=== PATIENT | female | born 1990 | race Caucasian/White ===

== ENCOUNTER → 2019-08-24 09:59 | Outpatient (CLI) | payer MEDICAID, SELFPAY ==
[2019-08-24 12:40] LABS: Absolute Lymphocyte Count 2.06 X10^3/uL (0.83-4.51); Absolute Neutrophil Count 5.4 X10^3/uL (2.0-7.7); Basophil# 0.05 X10^3/uL; Basophil% 0.6 % (0-1); Eosinophil# 0.44 X10^3/uL; Eosinophils% 5.3 % (0-5); Hematocrit 44.5 % (37-47); Hemoglobin 14.7 g/dL (12.0-15.0); Lymphocyte # 2.06 X10^3/ul (4.0); Lymphocyte % 24.6 % (19-41); Mean Corpuscular Hgb 28.4 pg (27.0-32.0); Mean Corpuscular Volume 86.1 fL (81-99); Mean Platelet Vol. 10.2 fl (6.2-12.0); Monocyte# 0.44 X10^3/uL; Monocyte% 5.3 % (0-10); NRBC Flagged by Analyzer 0 % (0-5); Neutrophil # 5.36 X10^3/uL (2.7-7.7); Platelet Count 278 K/mm3 (150-450); RBC Distribution Width CV 13.1 % (11.6-14.6); RBC Distribution Width SD 40.8 fl (35.1-43.9); Red Blood Count 5.17 M/mm3 (4.2-5.4); White Blood Count 8.4 K/mm3 (4.4-11.0)
[2019-08-24 12:52] LABS: AST(SGOT) 15 U/L (15-37); Alanine Aminotransfer ALT/SGPT 27 U/L (13-56); Albumin, Serum 3.2 g/dL (3.2-5.0); Alkaline Phosphatase 58 U/L (45-117); Anion Gap 5 (5-15); BUN 8 mg/dL (7-18); BUN/Creat Ratio 12.2 RATIO (10-20); Calcium,Total 8.5 mg/dL (8.5-10.1); Chloride 107 mmol/L (98-107); Cholesterol 161 mg/dL (200); Creatinine, Serum 0.65 mg/dL (0.55-1.02); EST Glomerular Filtration Rate 114 mL/min (>60); Est Glom Filt Rate - Afr Amer 138 mL/min (>60); Globulin 3.2 g/dL (2.2-4.2); Glucose 82 mg/dL (74-106); High Density Lipoprotein 44 mg/dL; Protein, Total 6.4 g/dL (6.4-8.2); Sodium Level 139 mmol/L (136-145); T4 Free Direct 1.04 ng/dL (0.76-1.46); Thyroid Stim Hormone (TSH) 2.95 uIU/mL (0.358-3.74); Triglycerides 107 mg/dL; Very Low Density Lipoprotein 21 mg/dL (5-40)
== END ==
PROVIDERS: PCP Internal Medicine; Referring Provider Internal Medicine; Visit Provider Internal Medicine
DX: E03.9 Hypothyroidism, unspecified (principal); J45.909 Unspecified asthma, uncomplicated
CPT/HCPCS: 36415; 80053; 80061; 84439; 84443; 85025

== ENCOUNTER 2019-08-30 17:13 | Emergency (ER) | payer MEDICAID, SELFPAY ==
[2019-08-17 13:52] VITALS: BMI 32.1
[2019-08-30 17:13] VITALS: BP 119/75; PULSE 87; RESP 19; TEMP 36.8; O2SAT 97; BMI 33.7
--- NOTE | 2019-08-30 17:14 | NURSING ---
NO OLD EKGS
--- NOTE | 2019-08-30 17:54 | EKG12_ITS ---
Test Reason : CP Blood Pressure : / mmHG Vent. Rate : 087 BPM Atrial Rate : 087 BPM P-R Int : 150 ms QRS Dur : 098 ms QT Int : 372 ms P-R-T Axes : 070 081 047 degrees QTc Int : 447 ms Normal sinus rhythm Normal ECG Confirmed by KVNG ZAMORA ([id number]), business editor SOHEILA BOLAÑOS ([id number]) on 09/01/2019 1:57:39 PM Referred By: CUCA Confirmed By:KVNG ZAMORA
[2019-08-30 18:32] LABS: Absolute Lymphocyte Count 3.04 X10^3/uL (0.83-4.51); Absolute Neutrophil Count 10.2 X10^3/uL (2.0-7.7); Basophil% 0.7 % (0-1); Eosinophils% 2.7 % (0-5); Hematocrit 52.3 % (37-47); Hemoglobin 17.1 g/dL (12.0-15.0); Lymphocyte # 3.04 X10^3/ul (4.0); Lymphocyte % 20.7 % (19-41); Mean Corp Hgb Conc 32.7 g/dL (32-36); Mean Corpuscular Hgb 28.2 pg (27.0-32.0); Mean Corpuscular Volume 86.2 fL (81-99); Mean Platelet Vol. 9.9 fl (6.2-12.0); Monocyte# 0.82 X10^3/uL; Monocyte% 5.6 % (0-10); NRBC Flagged by Analyzer 0 % (0-5); Neutrophil # 10.22 X10^3/uL (2.7-7.7); Neutrophil % 69.8 % (47-70); Platelet Count 329 K/mm3 (150-450); RBC Distribution Width SD 40.2 fl (35.1-43.9); Red Blood Count 6.07 M/mm3 (4.2-5.4); White Blood Count 14.7 K/mm3 (4.4-11.0)
[2019-08-30 18:46] VITALS: BP 111/80; BP 97/71; PULSE 102; PULSE 76
[2019-08-30 18:51] LABS: Anion Gap 5 (5-15); BUN 7 mg/dL (7-18); BUN/Creat Ratio 8.8 RATIO (10-20); Calcium,Total 8.4 mg/dL (8.5-10.1); Chloride 109 mmol/L (98-107); Creatinine, Serum 0.79 mg/dL (0.55-1.02); EST Glomerular Filtration Rate 91 mL/min (>60); Est Glom Filt Rate - Afr Amer 110 mL/min (>60); Glucose 118 mg/dL (74-106); Potassium 3.6 mmol/L (3.5-5.1); Sodium Level 141 mmol/L (136-145)
[2019-08-30 19:24] LABS: Internal QC Validated? YES +Cl - CLEAR BKGD; Pregnancy, Serum, hCG Quali. NEGATIVE Negative
--- NOTE | 2019-08-30 20:01 | ED.DCSUM_ITS ---
- ER Visit Summary Date of Service: 08/30/19 Chief Complaint: [Chest pain and near syncope] History of Present Illness: The patient is a 28 F [with symptoms that started around 2 PM today. Patient states that she was donating plasma and she felt presyncopal several times while there. This is happened in the past when she is donated plasma. She then subsequently developed a sharp intermittent stabbing pain in her chest that would come and go and last a few seconds. Patient also is had some intermittent chest heaviness. She denies recent travel or surgery. Her last menstrual period was August 17. Patient has history of asthma.] Physical Examination: [HEENT-PERRLA, EOMI. Cranial nerves II through XII grossly intact. TMs clear. Mucous membranes moist. No adenopathy. Cardiovascular-regular rate and rhythm without murmur or ectopy Lungs-clear to auscultation, chest wall stable without crepitus or subcu emphysema Abdomen-normoactive bowel sounds, soft, nontender, no rebound or rigidity, no peritoneal signs. Extremities-intact ?4, normal range of motion, normal pulses, atraumatic] Test Results: [EKG obtained arrival shows sinus rhythm with a ventricular rate of 87 bpm with no acute ST segment changes. CBC with differential showed a wh ite count 14.7, hemoglobin 17, hematocrit 52, placed 329. Chemistries unremarkable. Troponin was less than 0.015. hCG was negative.] Static vital signs were negative. Emergency Department Course and Treatment: [Patient was observed in the emergency department. Patient felt markedly improved.] Treatment Plan: [I suspect patient likely had vasovagal type presyncope. I advised to push fluids and rest. Patient to follow-up with her primary care physician in 3 to 5 days.] Disposition: [Discharged home in stable condition] Impression: [Chest pain-etiology uncertain Vasovagal presyncope] This note was generated with [employer] dictation software. It may contain incorrect words, spelling, and punctuation that were not noted in review of the chart prior to signing ED Disposition - Plan for ED Patient: Referrals: Rubén Crawford MD [Primary Care Provider] -
--- NOTE | 2019-08-30 20:04 | ED.DEP ---
ED Disposition - Plan for ED Patient: Instructions: CHEST PAIN, Uncertain Cause, NEAR SYNCOPE, Vasovagal Referrals: Rubén Crawford MD [Primary Care Provider] - 3-5 Days
[2019-08-30 20:11] VITALS: BP 100/64; PULSE 82; RESP 16; O2SAT 96
== END 2019-08-30 20:12 | disposition home or self-care (01) ==
LOC: ED 18:16
PROVIDERS: Emergency Provider Emergency Medicine; PCP Internal Medicine
DX: R07.9 Chest pain, unspecified (principal); R55 Syncope and collapse; J45.909 Unspecified asthma, uncomplicated
CPT/HCPCS: 80048; 84484; 84703; 85025; 93005; 99285; A4216

== ENCOUNTER → 2019-09-07 08:52 | Outpatient (CLI) | payer MEDICAID, SELFPAY ==
[2019-09-07 08:35] VITALS: BMI 33.3
[2019-09-07 12:55] LABS: Absolute Lymphocyte Count 2.14 X10^3/uL (0.83-4.51); Absolute Neutrophil Count 5.2 X10^3/uL (2.0-7.7); Basophil# 0.07 X10^3/uL; Basophil% 0.8 % (0-1); Eosinophil# 0.72 X10^3/uL; Eosinophils% 8.3 % (0-5); Hematocrit 46.3 % (37-47); Lymphocyte # 2.14 X10^3/ul (4.0); Lymphocyte % 24.7 % (19-41); Mean Corp Hgb Conc 32.4 g/dL (32-36); Mean Corpuscular Hgb 28.4 pg (27.0-32.0); Mean Corpuscular Volume 87.5 fL (81-99); Mean Platelet Vol. 9.7 fl (6.2-12.0); Monocyte# 0.54 X10^3/uL; Monocyte% 6.2 % (0-10); NRBC Flagged by Analyzer 0 % (0-5); Neutrophil % 59.9 % (47-70); Platelet Count 356 K/mm3 (150-450); RBC Distribution Width CV 13.1 % (11.6-14.6); RBC Distribution Width SD 41.5 fl (35.1-43.9); Red Blood Count 5.29 M/mm3 (4.2-5.4); White Blood Count 8.7 K/mm3 (4.4-11.0)
== END ==
PROVIDERS: PCP Internal Medicine; Referring Provider Internal Medicine; Visit Provider Internal Medicine
DX: R55 Syncope and collapse (principal)
CPT/HCPCS: 36415; 85025

== ENCOUNTER → 2020-02-26 11:46 | Outpatient (CLI) | payer MEDICAID, SELFPAY ==
[2020-02-24 16:51] VITALS: BMI 33.5
[2020-02-26 15:19] LABS: Absolute Lymphocyte Count 2.25 X10^3/uL (0.83-4.51); Absolute Neutrophil Count 5.6 X10^3/uL (2.0-7.7); Basophil# 0.05 X10^3/uL; Basophil% 0.5 % (0-1); Eosinophil# 0.72 X10^3/uL; Eosinophils% 7.8 % (0-5); Hematocrit 46.2 % (37-47); Lymphocyte # 2.25 X10^3/ul (4.0); Lymphocyte % 24.3 % (19-41); Mean Corp Hgb Conc 32.5 g/dL (32-36); Mean Corpuscular Hgb 28.4 pg (27.0-32.0); Mean Corpuscular Volume 87.5 fL (81-99); Mean Platelet Vol. 10.3 fl (6.2-12.0); Monocyte% 6.5 % (0-10); NRBC Flagged by Analyzer 0 % (0-5); Neutrophil # 5.61 X10^3/uL (2.7-7.7); Neutrophil % 60.7 % (47-70); Platelet Count 360 K/mm3 (150-450); RBC Distribution Width CV 12.9 % (11.6-14.6); RBC Distribution Width SD 41.1 fl (35.1-43.9); Red Blood Count 5.28 M/mm3 (4.2-5.4); White Blood Count 9.3 K/mm3 (4.4-11.0)
[2020-02-26 15:26] LABS: Magnesium 2.4 mg/dL (1.6-2.6)
[2020-02-26 15:40] LABS: ALB/GLOB Ratio 0.9 RATIO (0.9-2.4); AST(SGOT) 14 U/L (15-37); Alanine Aminotransfer ALT/SGPT 24 U/L (13-56); Albumin, Serum 3.5 g/dL (3.2-5.0); Alkaline Phosphatase 77 U/L (45-117); Anion Gap 6 (5-15); BUN 5 mg/dL (7-18); BUN/Creat Ratio 7.7 RATIO (10-20); Calcium,Total 8.6 mg/dL (8.5-10.1); Chloride 111 mmol/L (98-107); Cholesterol 151 mg/dL (200); Creatinine, Serum 0.65 mg/dL (0.55-1.02); EST Glomerular Filtration Rate 115 mL/min (>60); Est Glom Filt Rate - Afr Amer 139 mL/min (>60); Globulin 3.8 g/dL (2.2-4.2); Glucose 87 mg/dL (74-106); High Density Lipoprotein 44 mg/dL; Potassium 4.1 mmol/L (3.5-5.1); Protein, Total 7.3 g/dL (6.4-8.2); Sodium Level 141 mmol/L (136-145); T4 Free Direct 1.09 ng/dL (0.76-1.46); Thyroid Stim Hormone (TSH) 2.63 uIU/mL (0.358-3.74); Triglycerides 139 mg/dL; Very Low Density Lipoprotein 28 mg/dL (5-40)
== END ==
PROVIDERS: PCP Internal Medicine; Referring Provider Nurse Practitioner Family; Visit Provider Nurse Practitioner Family
DX: E03.9 Hypothyroidism, unspecified (principal); R07.9 Chest pain, unspecified; G47.10 Hypersomnia, unspecified; R00.2 Palpitations
CPT/HCPCS: 36415; 80053; 80061; 83735; 84439; 84443; 85025

== ENCOUNTER → 2020-03-15 12:41 | Outpatient (CLI) | payer MEDICAID, SELFPAY ==
[2020-02-24 16:51] VITALS: BMI 33.5
--- NOTE | 2020-03-15 12:42 | ECHOD_ITS ---
Reason For Study: CHEST PAIN Procedure This was a 2D Doppler, Color Flow transthoracic echocardiogram. The exam was of adequate technical quality. Exam performed in department. Left Ventricle Normal LV size. Left ventricular systolic function is normal. The estimated ejection fraction is 55 %. No evidence for diastolic dysfunction. No regional wall motion abnormalities noted. Right Ventricle Normal RV size. Normal systolic function. Atria Normal left atrium. Normal right atrium. No doppler evidence for ASD. Mitral Valve There is no mitral annular calcification. Mild diffuse mitral valve thickening. Mild mitral valve prolapse. Mild (1+) mitral valve insufficiency. Tricuspid Valve Normal tricuspid valve. Trivial tricuspid valve insufficiency. Right ventricular systolic pressure estimated to be 26 mmHg. Aortic Valve Trisinus/trileaflet aortic valve. Normal aortic valve. Pulmonic Valve The pulmonic valve is not well visualized. Trivial pulmonic valve insufficiency. Great Vessels Normal sized aortic root. Pericardium/Pleural No pericardial effusion. MMode/2D Measurements & Calculations LVIDd: 5.1 cm IVSd: 0.78 cm Ao root diam: 2.2 cm LVIDs: 3.6 cm LVPWd: 0.79 cm RVDd: 3.0 cm FS: 29.1 % LAV(MOD-bp): 37.7 ml LA A4 area: 8.0 cm2 LA dimension(2D): 3.4 cm LAV(MOD-bp) Indexed: 18.7 ml/m2 LAV(MOD-sp2): 50.4 ml LAV(MOD-sp4): 17.6 ml RA A4 area: 8.3 cm2 Time Measurements MV dec time: 0.22 sec Doppler Measurements & Calculations MV E max darryl: 65.6 cm/sec Lat Peak E' Darryl: 12.5 cm/sec Med Peak E' Darryl: 10.6 cm/sec MV A max darryl: 42.1 cm/sec E/E' lat: 5.3 E/E' med: 6.2 MV E/A: 1.6 Ao V2 max: 118.1 cm/sec LV V1 max: 80.1 cm/sec PA V2 max: 82.6 cm/sec Ao max P.6 mmHg LV V1 max P.6 mmHg PI end-d darryl: 117.7 cm/sec TR max darryl: 240.6 cm/sec TR max P.2 mmHg Interpretation Summary Left ventricular systolic function is normal. The estimated ejection fraction is 55 %. Mild mitral valve prolapse. Mild diffuse mitral valve thickening. Mild (1+) mitral valve insufficiency. Trivial tricuspid valve insufficiency. Trivial pulmonic valve insufficiency. Right ventricular systolic pressure estimated to be 26 mmHg. No evidence for diastolic dysfunction. Ordering Physician: Edy Crawford Referring Physician: Rubén Crawford Performed By: NubiaPam lugo RDCS, RVT
== END ==
PROVIDERS: PCP Internal Medicine; Referring Provider Nurse Practitioner Family; Visit Provider Nurse Practitioner Family
DX: R07.9 Chest pain, unspecified (principal); G47.10 Hypersomnia, unspecified; R00.2 Palpitations
CPT/HCPCS: 93306; 95810

== ENCOUNTER 2020-04-20 11:55 | Outpatient (RCR) | payer MEDICAID, SELFPAY ==
[2020-04-14 14:29] VITALS: BMI 33.4
--- NOTE | 2020-04-20 13:04 | HP.PTEVAL ---
Patient's Visit Information CIARRA AKHTAR is a 29 year old F referred to Physical Therapy by JUNIOR RedmondC with a diagnosis of B knee pain. Date of Evaluation: 04/20/20 Physical Therapist: Jameel Langley, PT, ATC - Visit Plan Frequency: 2-3x /Week Duration: 4-6 Weeks Plan: B LE stretching (HS's, IT band), B LE strengthening (hip abd and VMO's), core strengthening, nustep, and HEP - Subjective Pt reports she has injured her knees several times over the past few years. Pt notes she has dislocated her L knee, and fallen through a weak set of stairs. Pt reports her B knee pain has been intermittent over the years. Pt notes stair climbing, sitting up from a chair, running, and squatting all increase her pain. No sleep difficulty secondary to pain. Pt reports she has had L knee xrays 2 months ago which revealed some degenerative changes at that time. Occasional tingling and numbness in B Lower legs and feet after sitting in one posititon for too long. 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 Pt has 0/10 pain at rest currently, and her pain will elevate to 10/10 on occasion (which is random by nature) - Pain B Knee pain Pain Intensity (Out of 10): 0 Pain Intensity Range: 10 - Objective Neuro: B LE sensation is WNL to light touch. B Achilles reflex= 2/3. Palpation: Pain with palpation to the medial joint line and inferior pole of patella. Significant crepitus with AROM in Patello-femoral joint. No swelling obvious on this date. ROM: B knee 0-135 degrees. MMT: B knee flexion 5/5 throughout while Knee ext is 4-/5 and painful. Special testing: Pos Mcconnels sign and Mcmurrays sign - Goals Goal 1:: Decrease B knee pain x 50% to aid with pt's tolerance for ambulation Goal Time Frame: 4-6 Weeks Goal 2:: Increase B LE strength x 1 grade to aid with stair negotiatiion Goal Time Frame: 4-6 Weeks Goal 3:: Increase B LE flexibility x 1 grade to aid with decreasing pain in B knees Goal Time Frame: 4-6 Weeks Goal 4:: I with HEP Goal Time Frame: 4-6 Weeks - Rehabilitation Potential Physical Therapy Diagnosis: Pt has B knee pain, weakness, and difficulty with IADL's secondary to patello-femoral syndrome of B knees Rehabilitation Potential: Good - Anticipated Interventions Patient/Client Instruction: Educate patient on: Condition, Plan of Care For the Purpose of:: To improve self management Therapeutic Exercise to Include: Strength training, Endurance training, Balance training, Flexibilty training, Dynamic Lumbar Stabilization For the Purpose of:: To decrease pain, To improve muscle performance and motor function Cryotherapy (ice pack, ice massage): Yes For the Purpose of:: To decrease pain Thank you for the opportunity to evaluate your patient. For Medicare and Medicare HMO plans, please review the plan of care and approve it. It will need to be FAXED BACK to us at [phone] for Medicare purposes. For Medicare only, by signing this I certify the plan of care. Please let me know if there are questions or concerns regarding this plan of care. Physician Signature: Date:
--- NOTE | 2020-06-07 13:23 | HP.PT.NRP ---
CIARRA AKHTAR was seen in my office for initial evaluation on 04/20/20. The following Plan of Care was established for this patient: Initial Frequency: 2-3x /Week Initial Duration: 4-6 Weeks Patient/Client Instruction: Educate patient on: Condition, Plan of Care For the Purpose of:: To improve self management Therapeutic Exercise to Include: Strength training, Endurance training, Balance training, Flexibilty training, Dynamic Lumbar Stabilization For the Purpose of:: To decrease pain, To improve muscle performance and motor function Cryotherapy (ice pack, ice massage): Yes For the Purpose of:: To decrease pain This patient was last seen in our office . Pertinent comments regarding their Physical therapy will appear below: Pt was evaluated for B knee pain on the date of 04/20/20. Pt has not returned through this date and is discontinued at this time At this point I will be discontinuing this patient from physical therapy. I would be happy to see this patient again in the future if found appropriate by the physician. Thank you! Jameel Langley, PT, ATC
== END 2020-04-20 19:00 | disposition home or self-care (01) ==
LOC: PT 11:55
PROVIDERS: PCP Internal Medicine; Referring Provider Nurse Practitioner Family; Visit Provider Nurse Practitioner Family
DX: M25.561 Pain in right knee (principal); M25.562 Pain in left knee
CPT/HCPCS: 97110; 97161

== ENCOUNTER → 2020-05-02 09:57 | Outpatient (CLI) | payer MEDICAID, SELFPAY ==
[2020-04-14 14:29] VITALS: BMI 33.4
--- NOTE | 2020-05-02 16:28 | STRESSREP ---
Stress Test Report Exercise stress test. 29-year-old lady with a history of chest pain. Stress protocol: Resting KG demonstrates normal sinus rhythm with a rate of 67 bpm normal intervals are noted. Resting blood pressure is 106/62 mmHg. The patient exercised according to the regular Tani protocol for a total duration of 7 minutes patient completed 1 minute into stage III of the Tani protocol. The maximum heart rate attained was 162 bpm which was 84% of max impacted heart rate the maximum workload was 8.5 metabolic equivalents. At rest there were no ST or T wave changes noted to suggest ischemia peak exercise upsloping ST changes only were noted we did not meet the criteria for ischemia. No clinical angina was noted the test was terminated due to dyspnea. The peak blood pressure was 124/60 mmHg. Conclusion: Exercise stress test with no EKG criteria for ischemia at a high workload. Good functional aerobic capacity.
== END ==
PROVIDERS: PCP Internal Medicine; Referring Provider Physician Assistant Medical; Visit Provider Physician Assistant Medical
DX: R00.2 Palpitations (principal); R07.9 Chest pain, unspecified
CPT/HCPCS: 93017

== ENCOUNTER → 2020-05-05 08:14 | Outpatient (CLI) | payer MEDICAID, SELFPAY ==
[2020-03-30 15:36] VITALS: BMI 33.5
[2020-04-14 14:29] VITALS: BMI 33.4
--- NOTE | 2020-05-06 17:27 | PFTCOMP_ITS ---
COMPLETE PULMONARY FUNCTION TEST INTERPRETATION Brief HPI: Patient is a 29 year old female, currently under the care of Claire Portillo, who presents to [facility] for complete pulmonary function tests secondary to diagnosis of asthma. Respiratory therapist reports good effort and reproducible results. Interpretation: Forced expiration spirometry shows a mild large airways obstructive ventilatory defect with an FEV1 of 76% predicted. There is a significant bronchodilator response in FVC and FEV1 by strict ATS criteria. Spirograms are of good quality and plateau slowly, indicating slowly emptying areas of the lungs. The respiratory flow volume loop shows decreased expiratory flow rates at all lung volumes consistent with airway obstruction. Lung volumes by body plethysmography show an elevated total lung capacity at 6.46 L, 117% predicted. FRC and RV are elevated out of proportion. Lung volume measurements are consistent with hyperinflation and air-trapping. Diffusion capacity by carbon monoxide is normal at 100% predicted. The airway resistance is elevated. No previous pulmonary function tests were available for review. Impression: Partially reversible mild large airways obstructive ventilatory defect resulting in air trapping with hyperinflation
== END ==
PROVIDERS: PCP Internal Medicine; Referring Provider Nurse Practitioner Acute Care; Visit Provider Nurse Practitioner Acute Care
DX: J45.909 Unspecified asthma, uncomplicated (principal)
CPT/HCPCS: 94060; 94726; 94729

== ENCOUNTER → 2021-02-24 12:32 | Outpatient (CLI) | payer MEDICAID, SELFPAY ==
[2021-02-16 14:16] VITALS: BMI 35.1
--- NOTE | 2021-02-24 12:34 | STEWCON_ITS ---
Reason For Study: CHEST AIN Stress Results Protocol: Tani Protocol WITH DEFINITY Maximum Predicted HR: 190 bpm Target HR: 162 bpm % Maximum Predicted HR: 89 % DurationHeart Rate Stage (mm:ss) (bpm) BP Comment BASELINE 77 118/702 CC DEFINITY FOR ENTIRE TEST STAGE 1 3:00 109 134/62 STAGE 2 3:00 130 142/70 STAGE 3 3:00 164 148/82 STAGE 4 0:15 169 / SOB RECOVERY 11 120/62 Stress Duration: 9:15 mm:ss Maximum Stress HR: 169 bpm METS: 10 Baseline Echocardiogram Findings Stress Echo Wall motion Data Resting WM Intermediate WM Stress WM Resting Wall Motion Wall Motion Stress All segments Normal. All segments Hyperkinetic. Ejection Fraction 55 %. Ejection Fraction 65 %. Stress Results Heart rate response: Appropriate Blood pressure response: Normal resting blood pressure-appropriate response Arrhythmias: None Functional capacity: Good Stopped secondary to: Dyspnea. EKG Data Baseline ECG: Sinus rhythm. Peak exercise ECG: Somatic/motion artifact with no obvious ECG changes. Symptoms with Stress No complaint of chest discomfort during exercise or recovery. ECHO/Stress Test Echo W/Contrast Interpretation Summary Contrast injection performed Negative (adequate) stress echocardiogram Ordering Physician: Roderick Bauer Referring Physician: Roderick Bauer Performed By: Yvette Pisano, RDCS, RVT
== END ==
PROVIDERS: PCP Internal Medicine; Referring Provider Internal Medicine Cardiovascular Disease; Visit Provider Internal Medicine Cardiovascular Disease
DX: R07.89 Other chest pain (principal); R00.1 Bradycardia, unspecified; R00.0 Tachycardia, unspecified; R55 Syncope and collapse
CPT/HCPCS: 93017; 93350; Q9957; A4216; C8928; J3490

== ENCOUNTER → 2021-04-21 14:54 | Outpatient (CLI) | payer MEDICAID, SELFPAY | PROVIDERS: PCP Internal Medicine; Referring Provider Physician Assistant Surgical; Visit Provider Physician Assistant Surgical | DX: Z11.52 Encounter for screening for COVID-19 (principal) | CPT/HCPCS: 87635; U0005; U0003 ==

== ENCOUNTER → 2021-05-22 18:10 | Outpatient (CLI) | payer MEDICAID, SELFPAY | PROVIDERS: PCP Internal Medicine; Visit Provider Physician Assistant | DX: Z20.822 Contact with and (suspected) exposure to COVID-19 (principal) | CPT/HCPCS: 87635; U0005; U0003 ==

== ENCOUNTER → 2021-06-12 13:17 | Outpatient (CLI) | payer MEDICAID, SELFPAY | PROVIDERS: PCP Internal Medicine; Referring Provider Physician Assistant Surgical; Visit Provider Physician Assistant Surgical | DX: Z11.52 Encounter for screening for COVID-19 (principal) | CPT/HCPCS: 87635; U0005; U0003 ==

== ENCOUNTER 2021-07-12 09:18 | Outpatient (CLI) | payer MEDICAID, SELFPAY | END 2021-07-12 23:59 | disposition short-term general hospital (02) | LOC: LABSPEC 09:19 | PROVIDERS: PCP Internal Medicine; Visit Provider Physician Assistant | DX: Z11.52 Encounter for screening for COVID-19 (principal) | CPT/HCPCS: 87635; U0003; U0005 ==

== ENCOUNTER → 2022-05-16 | Outpatient (CLI) | payer MEDICAID, SELFPAY ==
--- NOTE | 2022-05-16 12:50 | MRI_ITS ---
STUDY: MRI RIGHT KNEE REASON FOR EXAM: Female, 31 years old. Pain. TECHNIQUE: Standardized fat and water weighted pulse sequences were obtained in all 3 orthogonal planes. COMPARISON: None. FINDINGS: Normal medial meniscus. Normal hyaline cartilage of the medial femorotibial compartment. Normal medial femoral condyle and tibial plateau. Normal medial collateral ligamentous complex (MCL). Normal distal semimembranosus, gracilis and semitendinosus tendons. Normal lateral meniscus. Normal hyaline cartilage of the lateral femorotibial compartment. Normal lateral femoral condyle and tibial plateau. Normal proximal tibiofibular articulation. Normal lateral collateral (fibular) ligament. Normal popliteus tendon. Normal biceps femoris tendon. Normal anterior cruciate ligament (ACL). Normal posterior cruciate ligament (PCL). There is arthrosis of the patellofemoral articulation. There is diffuse, less than 50% thickness articular cartilage loss of the patellofemoral compartment. There is mild spurring. Normal medial and lateral patellar retinaculum. Normal quadriceps tendon. Normal patellar tendon. Normal Hoffa''s fat pad. There is a small volume joint effusion. The soft tissues are unremarkable. The otherwise visualized osseous structures are unremarkable. MRI/Lower Ext Joint Only (Routine) IMPRESSION: Chondromalacia patella with degenerative change. Joint effusion. No meniscal tear. Electronically Signed: Audie Villar MD at 22:55 EST ,
== END | disposition home or self-care (01) ==
LOC: MRI 12:50
PROVIDERS: PCP Internal Medicine
DX: M23.91 Unspecified internal derangement of right knee (principal)
CPT/HCPCS: 73721

== ENCOUNTER → 2022-11-05 | Outpatient (CLI) | payer MEDICAID, SELFPAY ==
[2022-11-05 12:33] LABS: Absolute Lymphocyte Count 2.86 X10^3/uL (0.83-4.51); Absolute Neutrophil Count 6.1 X10^3/uL (2.0-7.7); Basophil# 0.07 X10^3/uL; Basophil% 0.7 % (0-1); Eosinophil# 0.52 X10^3/uL; Eosinophils% 5.2 % (0-5); Hematocrit 48.1 % (37-47); Hemoglobin 15.4 g/dL (12.0-15.0); Lymphocyte # 2.86 X10^3/ul (0.83-4.51); Lymphocyte % 28.4 % (19-41); Mean Corpuscular Hgb 27.8 pg (27.0-32.0); Mean Platelet Vol. 10.2 fl (6.2-12.0); Monocyte# 0.53 X10^3/uL; Monocyte% 5.3 % (0-10); NRBC Flagged by Analyzer 0 % (0-5); Neutrophil # 6.06 X10^3/uL (2.7-7.7); Neutrophil % 60.1 % (47-70); Platelet Count 355 K/mm3 (150-450); RBC Distribution Width CV 13.4 % (11.6-14.6); RBC Distribution Width SD 42.9 fl (35.1-43.9); Red Blood Count 5.53 M/mm3 (4.2-5.4); White Blood Count 10.1 K/mm3 (4.4-11.0)
[2022-11-05 13:00] LABS: Vitamin D,25 Hydroxy 33.2 ng/mL
[2022-11-05 13:14] LABS: ALB/GLOB Ratio 0.9 RATIO (0.9-2.4); AST(SGOT) 15 U/L (15-37); Alanine Aminotransfer ALT/SGPT 32 U/L (13-56); Albumin, Serum 3.6 g/dL (3.2-5.0); Alkaline Phosphatase 77 U/L (45-117); Anion Gap 6 (5-15); BUN 6 mg/dL (7-18); BUN/Creat Ratio 8.9 RATIO (10-20); Calcium,Total 9.5 mg/dL (8.5-10.1); Chloride 107 mmol/L (98-107); Cholesterol 176 mg/dL (200); Creatinine, Serum 0.67 mg/dL (0.55-1.02); EST Glomerular Filtration Rate 108 mL/min (>60); Est Glom Filt Rate - Afr Amer 130 mL/min (>60); Free T3 3.2 pg/mL (2.18-3.98); Globulin 4.2 g/dL (2.2-4.2); Glucose 94 mg/dL (74-106); High Density Lipoprotein 43 mg/dL; Potassium 3.8 mmol/L (3.5-5.1); Protein, Total 7.8 g/dL (6.4-8.2); Sodium Level 140 mmol/L (136-145); Thyroid Stim Hormone (TSH) 4.31 uIU/mL (0.358-3.74); Triglycerides 117 mg/dL; Very Low Density Lipoprotein 23 mg/dL (5-40)
[2022-11-05 14:13] LABS: Hemoglobin A1c 5.4 % (3.8-5.6)
== END | disposition home or self-care (01) ==
LOC: BIMLAB 11:11
PROVIDERS: PCP Internal Medicine; Referring Provider Internal Medicine; Visit Provider Internal Medicine
DX: Z13.220 Encounter for screening for lipoid disorders (principal); I47.1 Supraventricular tachycardia; J45.909 Unspecified asthma, uncomplicated; E03.9 Hypothyroidism, unspecified; R73.9 Hyperglycemia, unspecified
CPT/HCPCS: 36415; 80053; 80061; 82306; 83036; 84439; 84443; 84481; 85025

== ENCOUNTER → 2023-04-12 | Outpatient (CLI) | payer MEDICAID, SELFPAY ==
--- NOTE | 2023-04-12 10:23 | RAD_ITS ---
EXAM: XR CHEST, 2 VIEWS CLINICAL INDICATION: Pulmonary tuberculosis screening TECHNIQUE: Frontal and lateral views of the chest. COMPARISON: No relevant prior studies available. FINDINGS: LUNGS AND PLEURAL SPACES: No significant abnormality. No consolidation or edema. No pneumothorax. No effusion. HEART: No significant abnormality. Cardiac silhouette not enlarged. MEDIASTINUM: Central airways and mediastinal contour are unremarkable. BONES/JOINTS: No significant abnormality. SOFT TISSUES: No significant abnormality. RAD/Chest PA and Lateral IMPRESSION: No evidence of acute pathology in the chest. Specifically, no evidence of active tuberculosis infection. Electronically Signed: Segun Moss DO at 16:30 EDT ,
== END | disposition home or self-care (01) ==
LOC: RAD 10:02
PROVIDERS: PCP Internal Medicine; Referring Provider Internal Medicine; Visit Provider Internal Medicine
DX: Z11.1 Encounter for screening for respiratory tuberculosis (principal)
CPT/HCPCS: 71046